=== PATIENT | male | born 2000 | race Caucasian/White ===

== ENCOUNTER 2019-11-11 10:36 | Inpatient (IN) | payer OTHER ==
[~2019-11-11] VITALS: Ht 198.1 cm; Wt 168.2 kg
[2019-11-11] VITALS (9 sets, daily range): BP systolic 128–141; BP diastolic 56–68; PULSE 55–70; TEMP 98
[2019-11-11 11:01] LABS: HEMATOCRIT 45.3 % (36.0-47.0); HEMOGLOBIN 15.9 g/dl (12.5-16.1); MEAN CELL VOLUME 82 fl (80.0-95.0); MEAN CORPUSCULAR HEMOGLOBIN 29 pg (26.0-32.0); MEAN CORPUSCULAR HGB CONC 35 g/dl (33.0-37.0); MEAN PLATELET VOLUME 10.6 fl (7.4-10.4); PLATELET COUNT 295 K/mm3 (130-400); RED BLOOD COUNT 5.52 M/mm3 (4.20-5.60); REDCELL DISTRIBUTION WIDTH-CV 12.5 % (11.5-14.5)
[2019-11-11 11:21] LABS: ALBUMIN 4.9 gm/dL (3.5-5.0); BILIRUBIN,TOTAL 1.5 mg/dL (0.0-1.0); C-REACTIVE PROTEIN 5.2 mg/dL (0.0-0.9); CALCIUM 9.7 mg/dL (8.4-10.2); CREATININE, serum 0.86 (0.66-1.25); POTASSIUM 3.6 mmol/L (3.4-5.0); TOTAL PROTEIN 8.6 gm/dL (6.4-8.2)
[2019-11-11 12:25] LABS: BAND 2 % (0-10); NEUTROPHILS 74 % (42.0-75.2)
[2019-11-11 12:26] LABS: PLATELET ESTIMATE NORMAL (NORMAL)
[2019-11-11 12:32] LABS: LYMPHOCYTE 16 % (20.0-51.0)
--- NOTE | 2019-11-11 19:19 | NUR ---
Patient has done well since up from OR. Post op VSS. Tolerating clear liquids without difficulties. Antibiotics infusin per orders to left AC. Lap sites x 3 with bandaids. Denies further needs at this time Will report off to security shift supervisor.
--- NOTE | 2019-11-11 20:00 | NUR ---
Report received. Assumed care for genetics nurse. A&Ox3-drowsy. Post op vitals complete and remained stable. Denies shortness of breath/pain/nausea. INT to left forearm flushes without difficulty. Tolerating clear liuqids. Laps x3 to right side of [id number]. Denies needs. Call light in reach. Will monitor.
--- NOTE | 2019-11-11 22:30 | NUR ---
Called with c/o pain to right side of abdomen-described as burning-rating 5/10 on pain scale. Denies nausea. [place] one tab given per dr order. Call light in reach. Will monitor.
[2019-11-12] VITALS (7 sets, daily range): BP systolic 130–154; BP diastolic 60–72; PULSE 50–70; TEMP 97.9–99.5
--- NOTE | 2019-11-12 08:00 | NUR ---
Patrandalln in bed resting. Alert and oriented x 3. Assessment complete. Patient states pain to right shoulder. Encouraged patient to ambulate. INT to left forarm. Lap sites x 3 with bandaids, CDI. Denies further needs at this time.
--- NOTE | 2019-11-12 08:30 | NUR ---
Patient up ambulating in halls.
--- NOTE | 2019-11-12 09:21 | NUR ---
FRANKO met with the patient to complete initial intake. The patient lives in [place] with three roommates. The patient denies DME use and is independent with ADLs. The patient goes to [facility] for any medical needs and would like to use [facility] for medications. The patient does not have advanced directives in the EMR but states his parents Radha and Ottoniel would make medical decisions for him if needed. The patient plans to return home at discharge with his mother providing transportation. There are no additional needs at this time.
--- NOTE | 2019-11-12 10:10 | NUR ---
Patient requests pain to abdomen 5/10, medications given per orders.
--- NOTE | 2019-11-12 16:30 | NUR ---
Patient showered independently
--- NOTE | 2019-11-12 18:13 | NUR ---
Patient has done well throughout the day. Minimal needs. Has requested pain medication x2 today for abdominal pain 01/08. Medications given per orders. Encouraged patient to increase ambulation. Tolerating diet without difficulties. Denies further needs at this time. Will report off to bulk filler.
--- NOTE | 2019-11-12 21:19 | NUR ---
Pt ambulates in room and hallway without problem. Reports pain to right abdomen 01/08. Medicated with Sharon 7.5mg po now. IV Zosyn still infusing to left forearm site without redness or swelling. Has bandaids x3 to abdomen.
--- NOTE | 2019-11-12 21:55 | NUR ---
Reports continued pain to right abd. 12/09. Melvin 7.5mg given.
--- NOTE | 2019-11-12 23:30 | NUR ---
Reports second [place] helped relieve pain.
--- NOTE | 2019-11-13 01:50 | NUR ---
Medicated with Means 7.5mg 1 tab at this time, IV Zosyn infusing over 4 hrs.
[2019-11-13 03:54] VITALS: BP 144/91; PULSE 66; TEMP 98.5
[2019-11-13] MEDS ORDERED: AMOXICILLIN 8751 TAB PO (07:08)
--- NOTE | 2019-11-13 07:08 | NUR ---
Dr Yuen here to see patient.
[2019-11-13 07:50] VITALS: BP 147/66; PULSE 62; TEMP 98.2
--- NOTE | 2019-11-13 09:30 | NUR ---
Patient alert and oriented, answers questions appropriately. See assessment. Abdomen soft, non tender, non distended. Bowel sounds active x4 quads. +Flatus. +Bowel movement. Lap sites to abdomen with edges well approximated, no redness or drainage noted. Post op exercises reviewed with patient. No c/o at this time.
--- NOTE | 2019-11-13 11:48 | NUR ---
Discharge instructions reviewed with patient, verbalized understanding. Discharged ambulatory to auto/home with family at 1120.
== END 2019-11-13 11:20 | disposition home or self-care (01) | DRG 342 ==
LOC: COL.ER 10:36 → SURG 12:48
PROVIDERS: Nurse Practitioner Primary Care; ADMIT Surgery
PROC: 0DTJ4ZZ Resection of Appendix, Percutaneous Endoscopic Approach (ICD-10-PCS; principal; 2019-11-11 13:38)
DX: K35.31 Acute appendicitis with localized peritonitis and gangrene, without perforation (principal); Z68.41 Body mass index [BMI] 40.0-44.9, adult; E66.9 Obesity, unspecified
CPT/HCPCS: J0330; J1100; J1170; J1885; J2270; J2405; J2543; J2704; J2710; J3010; J7030; Q9967